=== PATIENT | female | born 1950 | race Two or more races ===

== ENCOUNTER 2016-12-19 17:22 | Emergency (ER) | payer MEDICARE, MEDICAID ==
[~2016-12-19] VITALS: Ht 152.4 cm; Wt 60.3 kg
[2016-12-19 18:47] LABS: PATH.CAST-FLAG NOT PRESENT; SPERM-FLAG NOT PRESENT; SRC-FLAG NOT PRESENT; XTAL-FLAG NOT PRESENT; YLC-FLAG NOT PRESENT
[2016-12-19 19:28] VITALS: BP 178/61
== END 2016-12-19 19:44 | disposition home or self-care (01) ==
LOC: ED 19:35
DX: N81.4 Uterovaginal prolapse, unspecified (principal); N30.90 Cystitis, unspecified without hematuria; N39.0 Urinary tract infection, site not specified; I10 Essential (primary) hypertension
CPT/HCPCS: 81001; 87086; 99284